=== PATIENT | male | born 1940 | race Caucasian/White ===

== ENCOUNTER 2021-12-18 14:51 | Emergency (ER) | payer MEDICARE, BC ==
[2021-12-18] MEDS: Sodium Chloride 0.9% 500 ML IV SCH (15:30)
[2021-12-18 16:08] LABS: TROPONIN I HIGH SENSITIVITY 5.8 pg/ml (<=60.4)
[2021-12-18] MEDS ORDERED: Ciprofloxacin 250 MG Tab ONE (16:30)
== END 2021-12-18 17:00 | disposition home or self-care (01) ==
LOC: LB.ED 14:51
DX: N39.0 Urinary tract infection, site not specified (principal); E86.0 Dehydration; E11.9 Type 2 diabetes mellitus without complications; Z88.2 Allergy status to sulfonamides; Z79.899 Other long term (current) drug therapy
CPT/HCPCS: 36415; 71045; 80053; 81001; 83605; 83880; 84484; 85025; 93005; 93010; 96360; 99282; 99284-25; A0425; A0429; A9270-GY; J7030